=== PATIENT | male | born 1980 ===

== ENCOUNTER 2024-09-22 11:23 | Emergency (ER) | payer SELFPAY ==
--- NOTE | 2024-09-22 11:50 | XR_ITS ---
Examination: CT abdomen and pelvis without contrast. Coronal 3-D reconstructions. Sagittal 2-D reconstructions. Date and time of exam:September 22, 2024 at 12:40 PM Indications: Lower pelvic pain and left testicular swelling beginning 2 weeks ago CTDI: vol (mGy): 6.26 DLP: (mGycm): 367 Technique: Axial images of the abdomen have been obtained, 3 mm slice thickness Intravenous contrast material has not been administered. Low dose protocols were performed. One or more of the following dose reduction techniques were used; automated exposure control, adjustment of the mA and/or KV according to patient size, use of iterative reconstruction technique. Findings: No focal liver lesions or biliary tract dilatation Contracted gallbladder No splenic pancreatic or adrenal mass No renal or ureteral calculi, no hydronephrosis Aorta normal size Numerous periaortic pericaval lymph nodes, measuring up to 10 mm Multiple subcentimeter common iliac lymph nodes Subcentimeter poorly defined Iliac lymph nodes Multiple enlarged abnormal common femoral lymph nodes, the largest on the left side 3 cm, on the right side 21 mm No definite hydrocele Impression: Normal appendix Abnormal abdominal and pelvic lymphadenopathy including multiple abnormal enlarged common femoral lymph nodes, the largest on the left side 3 cm, the largest on the right side 21 mm Differential would include Hodgkin's disease, non-Hodgkin's lymphoma, metastatic lymphadenopathy Recommend PET CT scan staging follow-up Normal appendix No bowel obstruction No diverticulitis Contracted urinary bladder Pathologic
--- NOTE | 2024-09-22 11:50 | PD.EDRME ---
Rapid Medical Screening Exam E Arrival date/time: 09/22/24 11:23 44-year-old male with no known medical history presents to the emergency room with a chief complaint of bilateral pelvic hernias that are causing him pain x 2 days. The patient also has a swollen left testicle. Patient denies any dysuria or hematuria I have greeted and performed a focused initial assessment of this patient. A comprehensive ED assessment and evaluation of the patient, analysis of all test results, and completion of the medical decision making process will be conducted by additional ED providers. Chief Complaint: Abdominal Pain Time Seen by Provider: 09/22/24 11:29 Vital signs reviewed by provider: Yes
[2024-09-22 11:51] VITALS: BP 119/77; PULSE 88; RESP 17; TEMP 37.8; O2SAT 96; BMI 24.2
[2024-09-22 12:38] LABS: Basophils # (Auto) 0.1 Thou/mm3 (0.0-0.2); Basophils % (Auto) 0 % (0-2.5); Eosinophils # (Auto) 0.4 Thou/mm3 (0.0-0.5); Eosinophils % (Auto) 4 % (0-10); Hematocrit 37.4 % (41.0-53.0); Hemoglobin 13.1 g/dL (13.5-16.0); Immature Granulocytes % (Auto) 1 % (0-0); Immature Granulocytes Auto 0.06 Thou/mm3 (0.00-0.00); Lymphocytes # (Auto) 1.1 Thou/mm3 (1.0-4.8); Lymphocytes % (Auto) 9 % (10-50); Mean Corpuscular Hemoglobin 30.8 pg (25.0-35.0); Mean Corpuscular Volume 88 fL (80-100); Monocytes # (Auto) 1.2 Thou/mm3 (0.0-0.8); Monocytes % (Auto) 11 % (0-12); Neutrophils # (Auto) 8.6 Thou/mm3 (1.8-7.7); Neutrophils % (Auto) 75 % (37-80); Nucleated Red Blood Cell % 0 /100 WBC (0); Platelet Count 269 Thou/mm3 (140-440); RDW Standard Deviation 40.9 fL (35.1-43.9); Red Blood Count 4.26 Miln/mm3 (4.50-5.90); White Blood Count 11.5 Thou/mm3 (3.8-10.6)
--- NOTE | 2024-09-22 12:41 | PC.NURSE ---
CALLED PT NO ANSWER
[2024-09-22 12:45] LABS: Collection Type, Urine Clean Catch
[2024-09-22 12:56] LABS: Alanine Aminotransferase 41 U/L (10-49); Albumin, Serum 4.2 gm/dL (3.5-5.0); Albumin/Globulin Ratio 1.2 (1.2-2.2); Alkaline Phosphatase 131 U/L (46-116); Anion Gap 6 (7-16); Aspartate Amino Transferase 47 U/L (0-34); BUN/Creatinine Ratio 36 Ratio (12-20); Bilirubin,Total 0.3 mg/dL (0.3-1.2); Blood Urea Nitrogen 25 mg/dL (9-23); Carbon Dioxide 28.7 mMol/L (20.0-31.0); Chloride 102 mMol/L (98-107); Creatinine (Component) 0.7 mg/dL (0.6-1.3); Globulin 3.4 gm/dL (2.3-3.5); Glucose 125 mg/dL (74-106); Lipase 32 U/L (12-53); Osmolality,Calculated 279 (275-295); Potassium 3.9 mMol/L (3.4-5.1); Sodium 137 mMol/L (136-145); Total Protein 7.6 gm/dL (5.7-8.2); eGFR > 60 See Note
[2024-09-22 13:15] LABS: Bilirubin,Urine Negative (Negative); Blood,Urine Negative (Negative); Clarity,Urine Clear (Clear/Hazy); Color,Urine Yellow (Lt Yel-Yel); Glucose, Urine Negative (Negative); Ketones,Urine Negative (Negative); Leukocyte Esterase,Urine Negative (Negative); Nitrite,Urine Negative (Negative); PH,Urine 6.5 (5.0-7.0); Protein,Urine Trace (Neg - Trace); RBC,Urine 3 /hpf (0-3); Specific Gravity,Urine 1.034 (1.001-1.035); Squamous Epithelial Cell,Urine < 1 /hpf (0-5); Urobilinogen,Urine Negative mg/dL (0.0-1.0); WBC,Urine 1 /hpf (0-5)
[2024-09-22 13:19] LABS: Sperm,Urine Present
--- NOTE | 2024-09-22 13:38 | PC.NURSE ---
Pt. signed AMA form, pt. is GCS of 15, Pt. girl friend is anxious and stating just mail us the results. Pt. is calm and states he wants to go home.
== END 2024-09-22 13:40 | disposition left against medical advice (07) ==
PROVIDERS: Nurse Practitioner Family; Emergency Provider Emergency Medicine
DX: K46.9 Unspecified abdominal hernia without obstruction or gangrene (principal); N50.89 Other specified disorders of the male genital organs; Z53.29 Procedure and treatment not carried out because of patient's decision for other reasons
CPT/HCPCS: 36415; 74176; 80053; 81001; 83690; 85025; 87086; 99281